=== PATIENT | female | born 1980 | race Caucasian/White ===

== ENCOUNTER 2017-09-22 14:42 | Emergency (ER) | payer OTHER ==
[~2017-09-22] VITALS: Ht 170.2 cm; Wt 84.4 kg
[~2017-09-22 14:42] MED LIST: NOHOMEMEDICATIONS
[2017-09-22] MEDS ORDERED: TOPAMAX 100 MG100 MG PO (14:49)
[2017-09-22] MEDS ORDERED: OMEPRAZOLE 20 M20 MG PO (14:49)
[2017-09-22] MEDS ORDERED: ZOLOFT25 MG PO (14:50)
[2017-09-22] MEDS ORDERED: OSELB75 PO ×2 (15:55→16:16)
[2017-09-22] MEDS ORDERED: ULTRAM 50MG TAB50 MG PO (15:56)
== END 2017-09-22 16:50 | disposition home or self-care (01) ==
LOC: ER 14:42
DX: Z20.828 Contact with and (suspected) exposure to other viral communicable diseases (principal); Z90.49 Acquired absence of other specified parts of digestive tract

== ENCOUNTER 2018-06-20 09:39 | Emergency (ER) | payer OTHER ==
[~2018-06-20] VITALS: Ht 170.2 cm; Wt 84.4 kg
[~2018-06-20 09:39] MED LIST changes: +OMEPRAZOLE 20 M20 MG PO; +OSELB75 PO; +TOPAMAX 100 MG100 MG PO; +ULTRAM 50MG TAB50 MG PO; +ZOLOFT25 MG PO
[2018-06-20 10:01] LABS: URINE BILIRUBIN NEGATIVE (Negative); URINE BLOOD 1+ (Negative); URINE COLOR YELLOW; URINE GLUCOSE-RANDOM* NEGATIVE (Negative); URINE KETONES 1+ (Negative); URINE NITRITE-REFLEX NEGATIVE (Negative); URINE PROTEIN (DIPSTICK) TRACE (Negative); URINE SPECIFIC GRAVITY 1.025 (1.005-1.035); URINE UROBILINOGEN 0.2 E.U./dl (0.2-1.0)
[2018-06-20 10:03] LABS: URINE CLARITY CLOUDY; URINE LEUKOCYTES-REFLEX TRACE (Negative)
[2018-06-20 10:09] LABS: MUCUS 4-6 Moderate strn/LPF (None Seen); SQUAMOUS >10 Many /LPF (0-3); URINE RBC 3-10 Few /HPF (0-2); URINE WBC-REFLEX 0-5 Rare /HPF (0-5)
[2018-06-20 10:11] LABS: CASTS None Seen /LPF (None Seen); CRYSTALS None Seen /LPF (None Seen)
[2018-06-20 11:19] LABS: URINE BILIRUBIN NEGATIVE (Negative); URINE BLOOD NEGATIVE (Negative); URINE CLARITY CLEAR; URINE COLOR YELLOW; URINE GLUCOSE-RANDOM* NEGATIVE (Negative); URINE KETONES NEGATIVE (Negative); URINE LEUKOCYTES-REFLEX NEGATIVE (Negative); URINE NITRITE-REFLEX NEGATIVE (Negative); URINE PROTEIN (DIPSTICK) NEGATIVE (Negative); URINE UROBILINOGEN 0.2 E.U./dl (0.2-1.0)
[2018-06-20] MEDS ORDERED: PRENATAL VITAM1 EA10 PO (12:48)
[2018-06-20 13:00] VITALS: BP 137/79
== END 2018-06-20 13:01 | disposition home or self-care (01) ==
LOC: ER 09:39
PROVIDERS: Student in an Organized Health Care Education/Training Program
DX: O26.891 Other specified pregnancy related conditions, first trimester (principal); R10.31 Right lower quadrant pain; R19.7 Diarrhea, unspecified; Z3A.01 Less than 8 weeks gestation of pregnancy

== ENCOUNTER 2021-02-24 16:36 | Emergency (ER) | payer OTHER ==
[~2021-02-24] VITALS: Ht 170.2 cm; Wt 83.9 kg
[~2021-02-24 16:36] MED LIST changes: +PRENATAL VITAM1 EA10 PO
[2021-02-24 17:00] LABS: URINE BILIRUBIN NEGATIVE (Negative); URINE BLOOD NEGATIVE (Negative); URINE CLARITY CLEAR; URINE COLOR YELLOW; URINE GLUCOSE-RANDOM* NEGATIVE (Negative); URINE KETONES NEGATIVE (Negative); URINE LEUKOCYTES-REFLEX NEGATIVE (Negative); URINE NITRITE-REFLEX NEGATIVE (Negative); URINE PROTEIN (DIPSTICK) NEGATIVE (Negative); URINE UROBILINOGEN 0.2 E.U./dl (0.2-1.0)
[2021-02-24 19:56] LABS: ABSOLUTE NEUTROPHILS 5.3 thou/uL (1.4-8.2); BASOPHILS 0.4 % (0.0-2.0); EOSINOPHILS 1.8 % (0.0-3.0); HEMATOCRIT 38.8 % (37.0-47.0); HEMOGLOBIN 13.4 gm/dL (12.0-15.0); LYMPHOCYTES 33.7 % (24.0-44.0); MCH 31.5 pg (26.0-34.0); MCHC 34.6 g/dL (28.0-37.0); MCV 91.2 fL (80.0-100.0); PLATELET COUNT 245 thou/uL (150-400); POLYS 58.1 % (36.0-66.0); RBC 4.26 mil/uL (4.20-5.00); RDW 13.3 % (10.5-14.5); WBC 9.2 thou/uL (4.0-11.0)
[2021-02-24 20:04] LABS: ANION GAP 11 mmol/L (7-16); BUN 12 mg/dL (7-18); CALCIUM 9.1 mg/dL (8.5-10.1); CHLORIDE 103 mmol/L (98-107); CO2 26 mmol/L (21-32); CREATININE 0.8 mg/dL (0.6-1.0); GLUCOSE 91 mg/dL (74-106); POTASSIUM 3.7 mmol/L (3.5-5.1); SODIUM 140 mmol/L (136-145)
[2021-02-24 20:13] LABS: TROPONIN-I <0.06 ng/mL (<0.06)
[2021-02-24 21:32] VITALS: BP 105/85
--- NOTE | 2021-02-25 07:12 | EKG ---
[address] [address] ELECTROCARDIOGRAM REPORT Name: CHANDU AVILA [id number] Admission: 02/24/21 Attend Phys: Discharge: 02/24/21 Date of : 84 Report #: [id number] [facility] ED Test Date: 2021-02-24 Test Time: 19:27:06 Pat Name: CHANDU AVILA Department: Room: Gender: F Skip Locator: : 1980 Requested By: Priscilla Hardy Order Number: [id number] MD: Ayush Sandhu Measurements Intervals [place] Rate: 59 P: 36 MI: 152 QRS: 57 QRSD: 85 T: 16 QT: 378 QTc: 375 Interpretive Statements Sinus rhythm No previous ECG available for comparison Electronically Signed On 02-25-2021 7:12:23 CDT by Ayush Sandhu [email or web address] <ELECTRONICALLY SIGNED> By: Auysh Sandhu MD, [facility] 02/25/21 0712 1927 26 Ayush Sandhu MD, FACC /EPI
== END 2021-02-24 21:42 | disposition home or self-care (01) ==
LOC: ER 16:36
PROVIDERS: Emergency Medicine; Physician Assistant
DX: R55 Syncope and collapse (principal); Z90.49 Acquired absence of other specified parts of digestive tract